=== PATIENT | male | born 1980 | race African-American/Black ===

== ENCOUNTER 2017-07-27 19:23 | Inpatient (IN) | payer MEDICAID ==
[~2017-07-27] VITALS: Ht 185.4 cm; Wt 181.6 kg
[~2017-07-27 19:23] MED LIST: OLAN5TAB30 PO; SERT50TA12 PO
[2017-07-27 19:53] VITALS: BP 137/90
[2017-07-27] MEDS ORDERED: HALOPERIDOL 5 MG TABLET PO PRN (20:00)
[2017-07-27] MEDS ORDERED: LORazepam 2 MG TABLET PO PRN (20:00)
[2017-07-27] MEDS ORDERED: ZOLPIDEM TARTRATE 10 MG TABLET PO PRN (20:00)
[2017-07-27 21:29] VITALS: BP 136/83
[2017-07-28 06:28] VITALS: BP 138/92
[2017-07-28 08:11] VITALS: BP 135/82
[2017-07-28 08:11] LABS: BASOPHILS % (AUTO) 0.3 % (0.0-2.0); EOSINOPHILS % (AUTO) 1.8 % (1.0-6.0); HEMATOCRIT 40.6 % (41-53); HEMOGLOBIN 13.7 g/dL (13.5-17.5); LYMPHOCYTES # (AUTO) 1.8 K/uL (1.0-4.8); LYMPHOCYTES % (AUTO) 28.4 % (22.0-44.0); MEAN CORPUSCULAR HEMOGLOBIN 30.1 pg (26.0-34.0); MEAN CORPUSCULAR HGB CONC 33.8 G/dL (31.0-37.0); MEAN CORPUSCULAR VOLUME 89 fL (80-100); MONOCYTES # (AUTO) 0.5 K/uL (0.1-1.0); NEUTROPHILS # (AUTO) 3.8 K/uL (1.8-7.7); NEUTROPHILS % (AUTO) 61.5 % (40.0-70.0); PLATELET COUNT (AUTO) 208 K/uL (150-450); RED BLOOD CELL COUNT(AUTO) 4.56 MIL/uL (4.50-5.90); RED CELL DISTRIBUTION WIDTH 13.5 % (11.5-14.5)
[2017-07-28 08:31] LABS: ALANINE AMINOTRANSFERASE 37 U/L (12-78); ALBUMIN 3.6 g/dL (3.4-5.0); ALKALINE PHOSPHATASE 49 U/L (46-116); ANION GAP 5 mmol/L (8-16); ASPARTATE AMINOTRANSFERASE 31 U/L (15-37); BILIRUBIN,TOTAL 0.5 mg/dL (0.1-1.0); CALCIUM, TOTAL 8.6 mg/dL (8.8-10.5); CARBON DIOXIDE 31 mmol/L (22-29); CHLORIDE 107 mmol/L (98-107); CREATININE 1.13 mg/dL (0.60-1.30); GLOMERULAR FILTR. RATE CALC > 60 mL/min (>60); GLUCOSE,RANDOM 103 mg/dL (70-110); POTASSIUM 3.7 mmol/L (3.5-5.1); SODIUM SERUM 143 mmol/L (136-145); TOTAL PROTEIN, SERUM 7.1 g/dL (6.4-8.2); UREA NITROGEN, BLOOD 13 mg/dL (7-18)
[2017-07-28] MEDS: ARIPiprazole 10 MG TABLET PO SCH ×2 (09:00→13:18)
[2017-07-28] MEDS: SERTRALINE HCL 50 MG TABLET PO SCH ×2 (09:00→13:17)
[2017-07-28] MEDS ORDERED: LOPERAMIDE HCL 2 MG CAPSULE PO PRN ×2 (10:00→19:00)
[2017-07-28] MEDS ORDERED: ACETAMINOPHEN 325 MG TABLET PO PRN (10:00)
[2017-07-28] MEDS ORDERED: MAGNESIUM HYDROXIDE SUSPENSION 30 ML UDCUP PO PRN (10:00)
[2017-07-28] MEDS ORDERED: IBUPROFEN 600 MG TABLET PO PRN (10:00)
[2017-07-28] MEDS ORDERED: CloNIDine HCL 0.1 MG TABLET PO PRN (10:00)
[2017-07-28] MEDS ORDERED: MAG HYDROX/AL HYDROX/SIMETH ES 30 ML SUSPENSION UDCUP PO PRN (10:00)
[2017-07-28] MEDS ORDERED: ONDANSETRON HCL 4 MG TABLET PO PRN (10:00)
[2017-07-28 16:00] VITALS: BP 130/76
[2017-07-28] MEDS ORDERED: BENZOCAINE/MENTHOL LOZENGE MM PRN (19:00)
[2017-07-28] MEDS ORDERED: ALBUTEROL SULFATE HFA 90 MCG/PUFF 8 GM INHALER IH PRN (19:00)
[2017-07-28] MEDS ORDERED: PETROLATUM,WHITE 71 GM JELLY TP PRN (19:00)
[2017-07-28] MEDS ORDERED: BACITRACIN 28.4 GM OINTMENT TP PRN (19:00)
[2017-07-29 06:33] VITALS: BP 105/60
[2017-07-29 08:22] VITALS: BP 132/84
[2017-07-29] MEDS: ARIPiprazole 10 MG TABLET PO SCH (09:00)
[2017-07-29] MEDS ORDERED: OMEPRAZOLE 20 MG CAPSULE PO SCH (09:00)
[2017-07-29] MEDS: SERTRALINE HCL 50 MG TABLET PO SCH (09:00)
[2017-07-29] MEDS ORDERED: ARIP10TA8 PO (11:01)
== END 2017-07-29 12:15 | disposition home or self-care (01) | DRG 750 ==
LOC: EDSTATUS 20:10 → B3A 20:18
DX: F25.1 Schizoaffective disorder, depressive type (principal); R45.851 Suicidal ideations; Z59.0 Homelessness; G47.00 Insomnia, unspecified; E78.5 Hyperlipidemia, unspecified; K59.00 Constipation, unspecified; F17.210 Nicotine dependence, cigarettes, uncomplicated; F12.90 Cannabis use, unspecified, uncomplicated; F15.10 Other stimulant abuse, uncomplicated; F10.10 Alcohol abuse, uncomplicated; Z71.6 Tobacco abuse counseling; Z71.51 Drug abuse counseling and surveillance of drug abuser; Z91.5 Personal history of self-harm

== ENCOUNTER 2017-12-03 07:21 | Inpatient (IN) | payer MEDICAID ==
[~2017-12-03] VITALS: Ht 185.4 cm; Wt 76.2 kg
[~2017-12-03 07:21] MED LIST changes: +ARIP10TA8 PO; -OLAN5TAB30 PO
[2017-12-03 12:00] VITALS: BP 115/67
[2017-12-03] MEDS ORDERED: ZOLPIDEM TARTRATE 10 MG TABLET PO PRN (12:30)
[2017-12-03] MEDS ORDERED: HALOPERIDOL 5 MG TABLET PO PRN (12:30)
[2017-12-03] MEDS ORDERED: LORazepam 2 MG TABLET PO PRN (12:30)
[2017-12-03 13:40] VITALS: BP 124/78
[2017-12-03] MEDS ORDERED: ACETAMINOPHEN 325 MG TABLET PO PRN (14:45)
[2017-12-03] MEDS ORDERED: IBUPROFEN 400 MG TABLET PO PRN (14:45)
[2017-12-03 16:00] VITALS: BP 124/78
[2017-12-03] MEDS ORDERED: DOCUSATE SODIUM 100 MG CAPSULE PO PRN (16:00)
[2017-12-04 06:55] VITALS: BP 109/73
[2017-12-04 07:53] LABS: BASOPHILS % (AUTO) 0.3 % (0.0-2.0); EOSINOPHILS % (AUTO) 1.3 % (1.0-6.0); HEMATOCRIT 42.6 % (41-53); HEMOGLOBIN 14.9 g/dL (13.5-17.5); LYMPHOCYTES # (AUTO) 1.3 K/uL (1.0-4.8); LYMPHOCYTES % (AUTO) 26.7 % (22.0-44.0); MEAN CORPUSCULAR HEMOGLOBIN 31.2 pg (26.0-34.0); MEAN CORPUSCULAR HGB CONC 34.9 G/dL (31.0-37.0); MEAN CORPUSCULAR VOLUME 90 fL (80-100); MONOCYTES # (AUTO) 0.5 K/uL (0.1-1.0); NEUTROPHILS % (AUTO) 60.7 % (40.0-70.0); PLATELET COUNT (AUTO) 217 K/uL (150-450); RED BLOOD CELL COUNT(AUTO) 4.76 MIL/uL (4.50-5.90); RED CELL DISTRIBUTION WIDTH 13.2 % (11.5-14.5)
[2017-12-04 08:18] VITALS: BP 125/83
[2017-12-04 08:37] LABS: HEMOGLOBIN A1C 5.6 % (4.5-6.2)
[2017-12-04 08:45] LABS: ALANINE AMINOTRANSFERASE 28 U/L (12-78); ALBUMIN 3.6 g/dL (3.4-5.0); ALKALINE PHOSPHATASE 54 U/L (46-116); ANION GAP 8 mmol/L (8-16); ASPARTATE AMINOTRANSFERASE 24 U/L (15-37); BILIRUBIN,TOTAL 0.5 mg/dL (0.1-1.0); CALCIUM, TOTAL 8.5 mg/dL (8.8-10.5); CARBON DIOXIDE 27 mmol/L (22-29); CHLORIDE 104 mmol/L (98-107); CHOL/HDL RATIO 2.1 (4.2-7.3); CHOLESTEROL 158 mg/dL (131-200); CREATININE 0.94 mg/dL (0.60-1.30); FREE T4 (FREE THYROXINE) 0.89 ng/dL (0.76-1.46); GLOMERULAR FILTR. RATE CALC > 60 mL/min (>60); GLUCOSE,RANDOM 151 mg/dL (70-110); HDL CHOLESTEROL 77 mg/dL (40-60); LDL CHOL (CALC.) 55 mg/dL (0-130); POTASSIUM 3.6 mmol/L (3.5-5.1); SODIUM SERUM 139 mmol/L (136-145); TRIGLYCERIDES 128 mg/dL (15-150); UREA NITROGEN, BLOOD 16 mg/dL (7-18)
[2017-12-04] MEDS: SERTRALINE HCL 50 MG TABLET PO SCH (10:23)
[2017-12-05 06:43] VITALS: BP 108/65
[2017-12-05] MEDS: SERTRALINE HCL 50 MG TABLET PO SCH (08:56)
[2017-12-05] MEDS ORDERED: DiphenhydrAMINE HCL 50 MG/ML VIAL IM ONE (11:15)
[2017-12-05] MEDS ORDERED: LORazepam 2 MG/ML VIAL IM ONE (11:15)
[2017-12-05] MEDS ORDERED: HALOPERIDOL LACTATE 5 MG/ML VIAL IM ONE (11:15)
[2017-12-05] MEDS ORDERED: DiphenhydrAMINE HCL 50 MG/ML VIAL ONE (11:19)
[2017-12-05 12:00] VITALS: BP 121/84
[2017-12-05 16:22] VITALS: BP 104/66
[2017-12-06 08:03] VITALS: BP 114/64
[2017-12-06] MEDS: SERTRALINE HCL 50 MG TABLET PO SCH (08:43)
== END 2017-12-06 11:20 | disposition home or self-care (01) | DRG 750 ==
LOC: B3A 12:46
PROVIDERS: ADMIT Psychiatry & Neurology Child & Adolescent Psychiatry; ATTEND Psychiatry & Neurology Child & Adolescent Psychiatry
DX: F25.9 Schizoaffective disorder, unspecified (principal); F32.9 Major depressive disorder, single episode, unspecified; F10.10 Alcohol abuse, uncomplicated; G47.00 Insomnia, unspecified; K59.00 Constipation, unspecified; F17.200 Nicotine dependence, unspecified, uncomplicated; Z71.51 Drug abuse counseling and surveillance of drug abuser
CPT/HCPCS: 83036; 84439; 84443; J1200; J1630; J2060

== ENCOUNTER 2018-07-14 00:27 | Inpatient (IN) | payer MEDICAID ==
[~2018-07-14] VITALS: Ht 185.4 cm; Wt 80.5 kg
[~2018-07-14 00:27] MED LIST changes: -ARIP10TA8 PO
[2018-07-14] MEDS ORDERED: HALOPERIDOL 5 MG TABLET PO PRN (01:15)
[2018-07-14] MEDS ORDERED: ZOLPIDEM TARTRATE 10 MG TABLET PO PRN (01:15)
[2018-07-14 02:28] VITALS: BP 133/76
[2018-07-14 08:14] VITALS: BP 112/64
[2018-07-14] MEDS ORDERED: BISACODYL 5 MG EC TABLET PO PRN (11:00)
[2018-07-14 16:00] VITALS: BP 120/77
[2018-07-14] MEDS: LORazepam 2 MG TABLET PO PRN (17:26)
[2018-07-15 06:18] VITALS: BP 154/83
[2018-07-15] MEDS: LORazepam 2 MG TABLET PO PRN (08:32)
[2018-07-15 08:39] VITALS: BP 125/87
[2018-07-15] MEDS ORDERED: SERTRALINE HCL 50 MG TABLET PO SCH (09:00)
[2018-07-15] MEDS ORDERED: ARIPiprazole 10 MG TABLET PO SCH (09:00)
== END 2018-07-15 19:30 | disposition home or self-care (01) | DRG 750 ==
LOC: B3A 01:00
PROVIDERS: ADMIT Psychiatry & Neurology Psychiatry; ATTEND Psychiatry & Neurology Psychiatry
DX: F25.9 Schizoaffective disorder, unspecified (principal); D64.9 Anemia, unspecified; F15.10 Other stimulant abuse, uncomplicated; K59.00 Constipation, unspecified; Z28.21 Immunization not carried out because of patient refusal
CPT/HCPCS: 90686

== ENCOUNTER 2019-06-08 18:47 | Emergency (ER) | payer MEDICAID, OTHER ==
[~2019-06-08] VITALS: Ht 185.4 cm; Wt 86.4 kg
[2019-06-08] MEDS ORDERED: PERTUSS(ACELL),DIPH,TET VAC/PF 0.5 ML VIAL IM ONE (20:30)
[2019-06-08 21:16] VITALS: BP 137/87
== END 2019-06-08 21:17 | disposition home or self-care (01) ==
LOC: EMS 18:48
DX: S61.310A Laceration without foreign body of right index finger with damage to nail, initial encounter (principal); F32.9 Major depressive disorder, single episode, unspecified; F20.9 Schizophrenia, unspecified; F17.210 Nicotine dependence, cigarettes, uncomplicated; W26.0XXA Contact with knife, initial encounter; Y93.89 Activity, other specified; Y92.89 Other specified places as the place of occurrence of the external cause; Y99.8 Other external cause status
CPT/HCPCS: 90471; 90715

== ENCOUNTER 2019-06-17 21:59 | Inpatient (IN) | payer MEDICAID ==
[~2019-06-17] VITALS: Ht 185.4 cm; Wt 89.2 kg
[2019-06-17] MEDS ORDERED: ARIP5TAB8 PO (22:13)
[2019-06-17] MEDS ORDERED: ZOLPIDEM TARTRATE 10 MG TABLET PO PRN (22:30)
[2019-06-17] MEDS ORDERED: LORazepam 2 MG TABLET PO PRN (22:30)
[2019-06-17] MEDS ORDERED: HALOPERIDOL 5 MG TABLET PO PRN (22:30)
[2019-06-17 22:50] VITALS: BP 132/76
[2019-06-18 00:58] VITALS: BP 126/84
[2019-06-18] MEDS ORDERED: INFLUENZA VIRUS VACCINE QVS 2019-20 (3YR+)/PF 60 MCG/0.5 ML SYRINGE IM ONE (01:15)
[2019-06-18 07:46] LABS: BASOPHILS % (AUTO) 0.3 % (0.0-2.0); EOSINOPHILS % (AUTO) 1.5 % (1.0-6.0); HEMATOCRIT 38.3 % (41-53); HEMOGLOBIN 12.8 g/dL (13.5-17.5); LYMPHOCYTES # (AUTO) 1.4 K/uL (1.0-4.8); LYMPHOCYTES % (AUTO) 17.6 % (22.0-44.0); MEAN CORPUSCULAR HEMOGLOBIN 29.4 pg (26.0-34.0); MEAN CORPUSCULAR HGB CONC 33.5 G/dL (31.0-37.0); MEAN CORPUSCULAR VOLUME 88 fL (80-100); MONOCYTES # (AUTO) 0.8 K/uL (0.1-1.0); MONOCYTES % (AUTO) 9.5 % (2.0-9.0); NEUTROPHILS # (AUTO) 5.8 K/uL (1.8-7.7); NEUTROPHILS % (AUTO) 71.1 % (40.0-70.0); PLATELET COUNT (AUTO) 224 K/uL (150-450); RED BLOOD CELL COUNT(AUTO) 4.36 MIL/uL (4.50-5.90); RED CELL DISTRIBUTION WIDTH 14.1 % (11.5-14.5)
[2019-06-18 08:01] LABS: HEMOGLOBIN A1C 6.2 % (4.5-6.2)
[2019-06-18 08:15] VITALS: BP 134/80
[2019-06-18 08:16] LABS: ALANINE AMINOTRANSFERASE 38 U/L (12-78); ALKALINE PHOSPHATASE 56 U/L (46-116); ANION GAP 5 mmol/L (8-16); ASPARTATE AMINOTRANSFERASE 37 U/L (15-37); BILIRUBIN,TOTAL 0.2 mg/dL (0.1-1.0); CALCIUM, TOTAL 8.4 mg/dL (8.8-10.5); CARBON DIOXIDE 29 mmol/L (22-29); CHLORIDE 106 mmol/L (98-107); CHOLESTEROL 124 mg/dL (131-200); CREATININE 0.89 mg/dL (0.60-1.30); FREE T4 (FREE THYROXINE) 1.11 ng/dL (0.76-1.46); GLOMERULAR FILTR. RATE CALC > 60 mL/min (>60); GLUCOSE,RANDOM 103 mg/dL (70-110); HDL CHOLESTEROL 62 mg/dL (40-60); LDL CHOL (CALC.) 42 mg/dL (0-130); POTASSIUM 3.9 mmol/L (3.5-5.1); SODIUM SERUM 140 mmol/L (136-145); THYROID STIMULATING HORMONE 1.08 uIU/mL (0.36-3.74); TOTAL PROTEIN, SERUM 6.7 g/dL (6.4-8.2); TRIGLYCERIDES 99 mg/dL (15-150); UREA NITROGEN, BLOOD 12 mg/dL (7-18)
[2019-06-18] MEDS: DOXYCYCLINE HYCLATE 100 MG CAPSULE PO SCH ×2 (10:50→16:45)
[2019-06-18] MEDS: BACITRACIN/POLYMYXIN B 15 GM OINTMENT TP SCH ×2 (13:12→20:32)
[2019-06-18 18:49] VITALS: BP 117/67
[2019-06-19 06:45] VITALS: BP 123/79
[2019-06-19 08:30] VITALS: BP 116/77
[2019-06-19] MEDS: BACITRACIN/POLYMYXIN B 15 GM OINTMENT TP SCH (09:00)
[2019-06-19] MEDS: DOXYCYCLINE HYCLATE 100 MG CAPSULE PO SCH (09:02)
== END 2019-06-19 12:45 | disposition home or self-care (01) | DRG 754 ==
LOC: B3A 22:32
PROVIDERS: ADMIT Psychiatry & Neurology Psychiatry; ATTEND Psychiatry & Neurology Psychiatry
DX: F32.9 Major depressive disorder, single episode, unspecified (principal); R45.851 Suicidal ideations; D64.9 Anemia, unspecified; S61.210A Laceration without foreign body of right index finger without damage to nail, initial encounter; Z59.0 Homelessness; X58.XXXA Exposure to other specified factors, initial encounter; Z91.5 Personal history of self-harm; Y93.89 Activity, other specified; Y92.89 Other specified places as the place of occurrence of the external cause
CPT/HCPCS: 83036; 84439; 84443; 90686

== ENCOUNTER 2019-09-09 08:45 | Inpatient (IN) | payer MEDICAID ==
[~2019-09-09] VITALS: Ht 185.4 cm; Wt 81.6 kg
[2019-09-09] MEDS ORDERED: HALOPERIDOL 5 MG TABLET PO PRN (12:00)
[2019-09-09] MEDS ORDERED: ZOLPIDEM TARTRATE 10 MG TABLET PO PRN (12:00)
[2019-09-09] MEDS ORDERED: LORazepam 2 MG TABLET PO PRN (12:00)
[2019-09-09 12:45] VITALS: BP 126/90
[2019-09-09] MEDS ORDERED: ARIP10TA8 PO (12:47)
[2019-09-09] MEDS ORDERED: SERT50TA12 PO (12:47)
[2019-09-09] MEDS ORDERED: INFLUENZA VIRUS VACCINE QVS 2019-20 (3YR+)/PF 60 MCG/0.5 ML SYRINGE IM ONE (13:45)
[2019-09-09] MEDS: SERTRALINE HCL 50 MG TABLET PO SCH (13:50)
[2019-09-09] MEDS: ARIPiprazole 10 MG TABLET PO SCH (13:50)
[2019-09-09 14:00] VITALS: BP 116/61
[2019-09-09 16:30] VITALS: BP 136/70
[2019-09-09] MEDS ORDERED: ALBUTEROL SULFATE HFA 90 MCG/PUFF 8 GM INHALER IH PRN (21:00)
[2019-09-09] MEDS ORDERED: IBUPROFEN 400 MG TABLET PO PRN (21:00)
[2019-09-09] MEDS ORDERED: MAGNESIUM HYDROXIDE SUSPENSION 30 ML UDCUP PO PRN (21:00)
[2019-09-09] MEDS ORDERED: GuaiFENesin/D-METHORPHAN [SUGAR-FREE] 200-20MG/10 ML SYRUP UDCUP PO PRN (21:00)
[2019-09-09] MEDS ORDERED: LOPERAMIDE HCL 2 MG CAPSULE PO PRN (21:00)
[2019-09-09] MEDS ORDERED: ONDANSETRON HCL 4 MG TABLET PO PRN (21:00)
[2019-09-09] MEDS ORDERED: DOCUSATE SODIUM 100 MG CAPSULE PO PRN (21:00)
[2019-09-09] MEDS ORDERED: MAG HYDROX/AL HYDROX/SIMETH ES 30 ML SUSPENSION UDCUP PO PRN (21:00)
[2019-09-09] MEDS ORDERED: CloNIDine HCL 0.1 MG TABLET PO PRN (21:00)
[2019-09-09] MEDS ORDERED: ACETAMINOPHEN 325 MG TABLET PO PRN (21:00)
[2019-09-09] MEDS ORDERED: NICOTINE 14 MG/24 HOUR PATCH TD PRN (21:00)
[2019-09-09] MEDS ORDERED: PETROLATUM,WHITE 28 GM JELLY TP PRN (21:00)
[2019-09-10 05:39] VITALS: BP 118/76
[2019-09-10 08:02] LABS: BASOPHILS % (AUTO) 0.4 % (0.0-2.0); EOSINOPHILS % (AUTO) 2.1 % (1.0-6.0); HEMATOCRIT 41.1 % (41-53); HEMOGLOBIN 13.8 g/dL (13.5-17.5); LYMPHOCYTES # (AUTO) 1.4 K/uL (1.0-4.8); LYMPHOCYTES % (AUTO) 30.8 % (22.0-44.0); MEAN CORPUSCULAR HEMOGLOBIN 30.2 pg (26.0-34.0); MEAN CORPUSCULAR HGB CONC 33.6 G/dL (31.0-37.0); MEAN CORPUSCULAR VOLUME 90 fL (80-100); MONOCYTES # (AUTO) 0.5 K/uL (0.1-1.0); MONOCYTES % (AUTO) 11.6 % (2.0-9.0); NEUTROPHILS # (AUTO) 2.5 K/uL (1.8-7.7); NEUTROPHILS % (AUTO) 55.1 % (40.0-70.0); PLATELET COUNT (AUTO) 217 K/uL (150-450); RED BLOOD CELL COUNT(AUTO) 4.57 MIL/uL (4.50-5.90); RED CELL DISTRIBUTION WIDTH 14.2 % (11.5-14.5)
[2019-09-10 08:44] LABS: ALANINE AMINOTRANSFERASE 27 U/L (12-78); ALBUMIN 3.2 g/dL (3.4-5.0); ALKALINE PHOSPHATASE 56 U/L (46-116); ANION GAP 8 mmol/L (8-16); ASPARTATE AMINOTRANSFERASE 23 U/L (15-37); BILIRUBIN,TOTAL 0.5 mg/dL (0.1-1.0); CALCIUM, TOTAL 8.6 mg/dL (8.8-10.5); CARBON DIOXIDE 26 mmol/L (22-29); CHLORIDE 107 mmol/L (98-107); CHOL/HDL RATIO 2.1 (4.2-7.3); CHOLESTEROL 140 mg/dL (131-200); CREATININE 0.94 mg/dL (0.60-1.30); FREE T4 (FREE THYROXINE) 1.03 ng/dL (0.76-1.46); GLOMERULAR FILTR. RATE CALC > 60 mL/min (>60); GLUCOSE,RANDOM 91 mg/dL (70-110); HDL CHOLESTEROL 68 mg/dL (40-60); LDL CHOL (CALC.) 54 mg/dL (0-130); POTASSIUM 3.6 mmol/L (3.5-5.1); SODIUM SERUM 141 mmol/L (136-145); THYROID STIMULATING HORMONE 0.51 uIU/mL (0.36-3.74); TOTAL PROTEIN, SERUM 6.7 g/dL (6.4-8.2); TRIGLYCERIDES 90 mg/dL (15-150); UREA NITROGEN, BLOOD 12 mg/dL (7-18)
[2019-09-10] MEDS: SERTRALINE HCL 50 MG TABLET PO SCH (09:37)
[2019-09-10] MEDS: ARIPiprazole 10 MG TABLET PO SCH (09:37)
[2019-09-10 16:13] VITALS: BP 109/62
[2019-09-11 08:00] VITALS: BP 140/88
[2019-09-11] MEDS: ARIPiprazole 10 MG TABLET PO SCH (08:32)
[2019-09-11] MEDS: SERTRALINE HCL 50 MG TABLET PO SCH (08:33)
[2019-09-11] MEDS ORDERED: ARIP10TA8 PO (12:03)
[2019-09-11] MEDS ORDERED: SERT50TA12 PO (12:03)
== END 2019-09-11 13:40 | disposition home or self-care (01) | DRG 751 ==
LOC: B2S 13:13
DX: F33.3 Major depressive disorder, recurrent, severe with psychotic symptoms (principal); R45.851 Suicidal ideations; F15.10 Other stimulant abuse, uncomplicated; F41.9 Anxiety disorder, unspecified; F10.10 Alcohol abuse, uncomplicated; Y90.9 Presence of alcohol in blood, level not specified; Z59.0 Homelessness; Z79.899 Other long term (current) drug therapy; Z91.5 Personal history of self-harm; Z28.21 Immunization not carried out because of patient refusal
CPT/HCPCS: 84439; 84443

== ENCOUNTER 2019-10-30 09:57 | Inpatient (IN) | payer MEDICAID ==
[~2019-10-30] VITALS: Ht 185.4 cm; Wt 81.2 kg
[~2019-10-30 09:57] MED LIST changes: +ARIP10TA8 PO
[2019-10-30 11:04] VITALS: BP 127/81
[2019-10-30] MEDS ORDERED: OLANZapine 5 MG RAPDIS TABLET PO PRN (11:45)
[2019-10-30] MEDS ORDERED: ACETAMINOPHEN 325 MG TABLET PO PRN (11:45)
[2019-10-30] MEDS ORDERED: PROMETHAZINE HCL 25 MG TABLET PO PRN (11:45)
[2019-10-30] MEDS ORDERED: GuaiFENesin/D-METHORPHAN [SUGAR-FREE] 200-20MG/10 ML SYRUP UDCUP PO PRN (11:45)
[2019-10-30] MEDS ORDERED: MAGNESIUM HYDROXIDE SUSPENSION 30 ML UDCUP PO PRN (11:45)
[2019-10-30] MEDS ORDERED: LORazepam 2 MG TABLET PO PRN (11:45)
[2019-10-30] MEDS ORDERED: ZOLPIDEM TARTRATE 10 MG TABLET PO PRN (11:45)
[2019-10-30] MEDS ORDERED: TUBERCULIN, PURIFIED PROTEIN DERIVATIVE 5 TU/0.1 ML SYRINGE ID ONE (11:45)
[2019-10-30] MEDS ORDERED: LOPERAMIDE HCL 2 MG CAPSULE PO PRN (11:45)
[2019-10-30] MEDS ORDERED: HydrOXYzine PAMOATE 50 MG CAPSULE PO PRN (11:45)
[2019-10-30] MEDS ORDERED: MAG HYDROX/AL HYDROX/SIMETH ES 30 ML SUSPENSION UDCUP PO PRN (11:45)
[2019-10-30 13:00] VITALS: BP 136/79
[2019-10-30 16:33] VITALS: BP 114/64
[2019-10-30] MEDS: THIAMINE HCL 100 MG TABLET PO SCH (17:16)
[2019-10-30] MEDS: OLANZapine 5 MG RAPDIS TABLET PO SCH (21:46)
[2019-10-31 05:05] VITALS: BP 110/70
[2019-10-31 08:20] VITALS: BP 112/71
[2019-10-31 08:27] LABS: HEMOGLOBIN A1C 5.9 % (3.8-5.6)
[2019-10-31 08:29] LABS: BASOPHILS % (AUTO) 0.4 % (0.0-2.0); EOSINOPHILS % (AUTO) 2.5 % (1.0-6.0); HEMATOCRIT 44.3 % (41-53); HEMOGLOBIN 14.6 g/dL (13.5-17.5); LYMPHOCYTES # (AUTO) 1.7 K/uL (1.0-4.8); LYMPHOCYTES % (AUTO) 32.7 % (22.0-44.0); MEAN CORPUSCULAR HEMOGLOBIN 29.8 pg (26.0-34.0); MEAN CORPUSCULAR HGB CONC 32.9 G/dL (31.0-37.0); MEAN CORPUSCULAR VOLUME 91 fL (80-100); MONOCYTES # (AUTO) 0.4 K/uL (0.1-1.0); MONOCYTES % (AUTO) 7.1 % (2.0-9.0); NEUTROPHILS % (AUTO) 57.3 % (40.0-70.0); PLATELET COUNT (AUTO) 210 K/uL (150-450); RED BLOOD CELL COUNT(AUTO) 4.88 MIL/uL (4.50-5.90); RED CELL DISTRIBUTION WIDTH 13.7 % (11.5-14.5)
[2019-10-31 08:47] LABS: ALANINE AMINOTRANSFERASE 36 U/L (12-78); ALBUMIN 3.4 g/dL (3.4-5.0); ALKALINE PHOSPHATASE 66 U/L (46-116); ANION GAP 6 mmol/L (8-16); ASPARTATE AMINOTRANSFERASE 33 U/L (15-37); BILIRUBIN,TOTAL 0.5 mg/dL (0.1-1.0); CALCIUM, TOTAL 8.7 mg/dL (8.8-10.5); CARBON DIOXIDE 29 mmol/L (22-29); CHLORIDE 107 mmol/L (98-107); CHOL/HDL RATIO 1.9 (4.2-7.3); CHOLESTEROL 144 mg/dL (131-200); CREATININE 0.94 mg/dL (0.60-1.30); FREE T4 (FREE THYROXINE) 1.11 ng/dL (0.76-1.46); GLOMERULAR FILTR. RATE CALC > 60 mL/min (>60); GLUCOSE,RANDOM 88 mg/dL (70-110); HDL CHOLESTEROL 75 mg/dL (40-60); LDL CHOL (CALC.) 48 mg/dL (0-130); POTASSIUM 3.9 mmol/L (3.5-5.1); SODIUM SERUM 142 mmol/L (136-145); THYROID STIMULATING HORMONE 0.61 uIU/mL (0.36-3.74); TOTAL PROTEIN, SERUM 6.5 g/dL (6.4-8.2); TRIGLYCERIDES 106 mg/dL (15-150); UREA NITROGEN, BLOOD 9 mg/dL (7-18)
[2019-10-31] MEDS: THIAMINE HCL 100 MG TABLET PO SCH ×2 (08:48→17:00)
[2019-10-31] MEDS: MULTIVITAMINS WITH MINERALS, THERAPEUTIC TABLET PO SCH (08:48)
[2019-10-31] MEDS: FOLIC ACID 1 MG TABLET PO SCH (08:48)
[2019-10-31] MEDS: NALTREXONE HCL 50 MG TABLET PO SCH (09:00)
[2019-10-31] MEDS: FLUoxetine HCL 20 MG CAPSULE PO SCH (09:00)
[2019-10-31 16:36] VITALS: BP 153/69
[2019-10-31] MEDS: OLANZapine 5 MG RAPDIS TABLET PO SCH (21:00)
[2019-11-01 00:30] VITALS: BP 121/73
[2019-11-01] MEDS: FLUoxetine HCL 20 MG CAPSULE PO SCH (09:00)
[2019-11-01] MEDS: NALTREXONE HCL 50 MG TABLET PO SCH (09:00)
[2019-11-01] MEDS: FOLIC ACID 1 MG TABLET PO SCH (09:29)
[2019-11-01] MEDS: MULTIVITAMINS WITH MINERALS, THERAPEUTIC TABLET PO SCH (09:29)
[2019-11-01] MEDS: THIAMINE HCL 100 MG TABLET PO SCH ×2 (09:29→16:53)
[2019-11-01 20:28] VITALS: BP 124/100
[2019-11-01] MEDS ORDERED: OLANZapine 10 MG RAPDIS TABLET PO SCH (21:00)
[2019-11-02] MEDS: THIAMINE HCL 100 MG TABLET PO SCH ×2 (09:00→15:46)
[2019-11-02] MEDS: MULTIVITAMINS WITH MINERALS, THERAPEUTIC TABLET PO SCH (09:00)
[2019-11-02] MEDS: FOLIC ACID 1 MG TABLET PO SCH (09:00)
[2019-11-02] MEDS: NALTREXONE HCL 50 MG TABLET PO SCH (09:00)
[2019-11-02] MEDS: FLUoxetine HCL 20 MG CAPSULE PO SCH (09:00)
[2019-11-02] MEDS ORDERED: NALT50TA PO (15:24)
[2019-11-02] MEDS ORDERED: SERT50TA12 PO (15:24)
[2019-11-02] MEDS ORDERED: ARIP15TA2 PO (15:24)
[2019-11-03] MEDS ORDERED: SERTRALINE HCL 50 MG TABLET PO SCH (09:00)
[2019-11-03] MEDS ORDERED: ARIPiprazole 15 MG TABLET PO SCH (09:00)
== END 2019-11-02 22:56 | disposition home or self-care (01) | DRG 750 ==
LOC: B2S 11:47
PROVIDERS: ADMIT Psychiatry & Neurology Psychiatry; ATTEND Psychiatry & Neurology Psychiatry
DX: F25.9 Schizoaffective disorder, unspecified (principal); R45.851 Suicidal ideations; Z91.19 Patient's noncompliance with other medical treatment and regimen; F17.210 Nicotine dependence, cigarettes, uncomplicated; Z79.899 Other long term (current) drug therapy
CPT/HCPCS: 83036; 84439; 84443; 86592

== ENCOUNTER 2019-11-09 10:23 | Emergency (ER) | payer MEDICAID, OTHER ==
[~2019-11-09] VITALS: Ht 185.4 cm; Wt 77.3 kg
[~2019-11-09 10:23] MED LIST changes: -ARIP10TA8 PO; +ARIP15TA2 PO; +NALT50TA PO
[2019-11-09 10:59] VITALS: BP 142/80
[2019-11-09] MEDS ORDERED: LORazepam 2 MG TABLET PO ONE (11:00)
== END 2019-11-09 14:13 | disposition home or self-care (01) ==
LOC: EMS 10:24
DX: R45.851 Suicidal ideations (principal); F32.9 Major depressive disorder, single episode, unspecified; F22 Delusional disorders; F20.9 Schizophrenia, unspecified; F17.210 Nicotine dependence, cigarettes, uncomplicated

== ENCOUNTER 2020-09-04 07:15 | Inpatient (IN) | payer MEDICAID ==
[~2020-09-04 07:15] MED LIST changes: -ARIP15TA2 PO; +ARIP15TA27 PO; -NALT50TA PO; -SERT50TA12 PO
[2020-09-04] MEDS ORDERED: LORazepam 2 MG TABLET PO PRN (08:30)
[2020-09-04] MEDS ORDERED: ZOLPIDEM TARTRATE 10 MG TABLET PO PRN (08:30)
[2020-09-04] MEDS ORDERED: HALOPERIDOL 5 MG TABLET PO PRN (08:30)
[2020-09-04] MEDS ORDERED: MAGNESIUM HYDROXIDE SUSPENSION 30 ML UDCUP PO PRN (12:45)
[2020-09-04] MEDS ORDERED: DOCUSATE SODIUM 100 MG CAPSULE PO PRN (12:45)
[2020-09-04] MEDS ORDERED: IBUPROFEN 400 MG TABLET PO PRN (12:45)
[2020-09-04] MEDS ORDERED: ALBUTEROL SULFATE HFA 90 MCG/PUFF 8 GM INHALER IH PRN (12:45)
[2020-09-04] MEDS ORDERED: CloNIDine HCL 0.1 MG TABLET PO PRN (12:45)
[2020-09-04] MEDS ORDERED: GuaiFENesin/D-METHORPHAN [SUGAR-FREE] 200-20MG/10 ML SYRUP UDCUP PO PRN (12:45)
[2020-09-04] MEDS ORDERED: ONDANSETRON HCL 4 MG TABLET PO PRN (12:45)
[2020-09-04] MEDS ORDERED: ACETAMINOPHEN 325 MG TABLET PO PRN (12:45)
[2020-09-04] MEDS ORDERED: PETROLATUM,WHITE 28 GM JELLY TP PRN (12:45)
[2020-09-04] MEDS ORDERED: NICOTINE 14 MG/24 HOUR PATCH TD PRN (12:45)
[2020-09-04] MEDS ORDERED: LOPERAMIDE HCL 2 MG CAPSULE PO PRN (12:45)
[2020-09-04] MEDS ORDERED: MAG HYDROX/AL HYDROX/SIMETH ES 30 ML SUSPENSION UDCUP PO PRN (12:45)
[2020-09-04 16:11] VITALS: BP 105/57
[2020-09-05] MEDS ORDERED: INFLUENZA VIRUS VACCINE QVS 2020-21 (6MO+)/PF 60 MCG/0.5 ML SYRINGE IM ONE (06:15)
[2020-09-05 06:41] VITALS: BP 115/74
[2020-09-05 08:28] VITALS: BP 135/78
[2020-09-05] MEDS: ARIPiprazole 15 MG TABLET PO SCH (14:26)
[2020-09-05] MEDS: SERTRALINE HCL 50 MG TABLET PO SCH (14:26)
[2020-09-05 16:36] VITALS: BP 115/67
[2020-09-06 01:10] VITALS: BP 118/71
[2020-09-06 08:24] VITALS: BP 116/65
[2020-09-06] MEDS: SERTRALINE HCL 50 MG TABLET PO SCH (09:00)
[2020-09-06] MEDS: ARIPiprazole 15 MG TABLET PO SCH (09:00)
[2020-09-06 16:18] VITALS: BP 113/85
[2020-09-07 05:45] VITALS: BP 136/88
[2020-09-07] MEDS: SERTRALINE HCL 50 MG TABLET PO SCH (09:00)
[2020-09-07] MEDS: ARIPiprazole 15 MG TABLET PO SCH (09:00)
[2020-09-07 17:20] VITALS: BP 121/80
[2020-09-08 01:31] VITALS: BP 125/68
[2020-09-08] MEDS: ARIPiprazole 15 MG TABLET PO SCH (09:09)
[2020-09-08] MEDS: SERTRALINE HCL 50 MG TABLET PO SCH (09:09)
[2020-09-08 09:23] VITALS: BP 142/80
[2020-09-08] MEDS ORDERED: SERT-158 PO (11:57)
== END 2020-09-08 12:00 | disposition home or self-care (01) | DRG 750 ==
LOC: B3A 11:57
PROVIDERS: ADMIT Psychiatry & Neurology Psychiatry; ATTEND Psychiatry & Neurology Psychiatry
DX: F25.1 Schizoaffective disorder, depressive type (principal); R45.851 Suicidal ideations; F15.10 Other stimulant abuse, uncomplicated; F10.10 Alcohol abuse, uncomplicated; I95.9 Hypotension, unspecified; Z20.822 Contact with and (suspected) exposure to COVID-19; Y90.9 Presence of alcohol in blood, level not specified; Z59.0 Homelessness
CPT/HCPCS: Z7610

== ENCOUNTER 2020-09-04 08:33 | Emergency (ER) | payer MEDICAID, OTHER ==
[~2020-09-04] VITALS: Ht 177.8 cm; Wt 77.3 kg
[~2020-09-04 08:33] MED LIST changes: +ARIP15TA2 PO; -ARIP15TA27 PO
[2020-09-04 09:48] LABS: COVID AG,FIA SOURCE NASOPHARYNGEAL
[2020-09-04 13:00] VITALS: BP 124/82
== END 2020-09-04 13:56 | disposition home or self-care (01) ==
LOC: EMS 08:33
DX: Z20.822 Contact with and (suspected) exposure to COVID-19 (principal); F32.9 Major depressive disorder, single episode, unspecified; F20.9 Schizophrenia, unspecified; F17.210 Nicotine dependence, cigarettes, uncomplicated
CPT/HCPCS: 87426; 99283